=== PATIENT | male | born 1965 | race Caucasian/White ===

== ENCOUNTER 2017-05-29 10:09 | Day surgery (SDC) | payer OTHER ==
[2017-05-29] MEDS: NS 1,000 ML IV (10:15)
[2017-05-29] MEDS ORDERED: LIDOCAINE 2% MDV 20 ML VIAL As Ordered (11:13)
[2017-05-29] MEDS ORDERED: PROPOFOL 200 MG/20 ML VIAL As Ordered ×2 (11:13→11:32)
== END 2017-05-29 12:08 | disposition home or self-care (01) ==
LOC: M OPP 10:09
DX: K62.5 Hemorrhage of anus and rectum (principal); D12.5 Benign neoplasm of sigmoid colon; D12.3 Benign neoplasm of transverse colon; D12.2 Benign neoplasm of ascending colon; K64.2 Third degree hemorrhoids; K64.1 Second degree hemorrhoids; R10.12 Left upper quadrant pain; R13.10 Dysphagia, unspecified; K21.0 Gastro-esophageal reflux disease with esophagitis; K31.89 Other diseases of stomach and duodenum; K29.80 Duodenitis without bleeding; R07.89 Other chest pain; E78.5 Hyperlipidemia, unspecified; E66.9 Obesity, unspecified; M54.2 Cervicalgia; M54.89 Other dorsalgia; R06.83 Snoring; Z88.0 Allergy status to penicillin; Z79.899 Other long term (current) drug therapy; Z79.82 Long term (current) use of aspirin
CPT/HCPCS: 45385

== ENCOUNTER 2018-02-22 14:33 | Emergency (ER) | payer OTHER ==
[2018-02-22] MEDS: NORCO, ANEXSIA 5/325MG TABLET (HYDROcodone/ACETAMINOPHEN) PO (16:55)
== END 2018-02-22 17:44 | disposition home or self-care (01) ==
LOC: M ED 14:33
DX: R91.1 Solitary pulmonary nodule (principal); S40.011A Contusion of right shoulder, initial encounter; V86.96XA Unspecified occupant of dirt bike or motor/cross bike injured in nontraffic accident, initial encounter; Y92.89 Other specified places as the place of occurrence of the external cause; Z88.0 Allergy status to penicillin; Z87.891 Personal history of nicotine dependence
CPT/HCPCS: 71046

== ENCOUNTER → 2018-03-04 | Outpatient (CLI) | payer OTHER ==
[~2018-03-04] MED LIST: CONRAY-43 43% 50ML VIAL (Q9960) As Ordered; PROHANCE 279.3MG/ML 5ML VIAL (A9576) As Ordered
== END ==
LOC: M RADPRO 06:08
DX: M75.32 Calcific tendinitis of left shoulder (principal); M75.122 Complete rotator cuff tear or rupture of left shoulder, not specified as traumatic; M19.012 Primary osteoarthritis, left shoulder; M75.51 Bursitis of right shoulder; M25.512 Pain in left shoulder
CPT/HCPCS: 23350

== ENCOUNTER 2018-04-29 17:13 | Emergency (ER) | payer OTHER ==
[~2018-04-29] VITALS: Ht 182.9 cm; Wt 104.5 kg
[~2018-04-29 17:13] MED LIST changes: +ATOR1TAB21; -CONRAY-43 43% 50ML VIAL (Q9960) As Ordered; +MOBI15TA PO; +NORCOTAB PO; -PROHANCE 279.3MG/ML 5ML VIAL (A9576) As Ordered
--- NOTE | 2018-04-29 17:56 | REP ---
Clinical: Acute headache . Comparison: None . Findings: The ventricles, sulci, and cisterns are normal in position and appearance. Esteves-white differentiation is maintained. No acute intracranial hemorrhage, mass/mass effect, pathology or trauma/injury. No evidence for acute infarction. No extra-axial fluid collection. Calvarium is intact. Paranasal sinuses and mastoid air cells are clear. Impression: Normal noncontrast head CT. No evidence for acute intracranial pathology or trauma/injury. Electronically Signed by Leroy Rooney MD 04/29/2018 05:47 P
[2018-04-29] MEDS ORDERED: NS 1,000 ML IV ONE (18:00)
[2018-04-29] MEDS ORDERED: METOCLOPRAMIDE INJ 10MG/2ML VIAL (J2765) IV ONE (18:00)
[2018-04-29] MEDS ORDERED: diphenhydrAMINE INJ 50MG/ML VIAL (J1200) IV STA (18:21)
[2018-04-29] MEDS ORDERED: METHOCARBAMOL 1,000 MG/10 ML VIAL (J2800) IV ONE (18:30)
[2018-04-29] MEDS ORDERED: KETOROLAC 30 MG/ML VIAL (J1885) IV ONE (18:30)
[2018-04-29] MEDS ORDERED: ROBA500T PO (19:48)
[2018-04-29 20:01] VITALS: BP 135/96
== END 2018-04-29 20:03 | disposition home or self-care (01) ==
LOC: M ED 17:13
DX: R51 Headache (principal); Z88.0 Allergy status to penicillin; Z87.891 Personal history of nicotine dependence
CPT/HCPCS: 70450; 96361; 96374; 96375; 99284; J1200; J1885; J2765; J2800

== ENCOUNTER 2018-10-29 09:31 | Day surgery (SDC) | payer OTHER ==
[~2018-10-29] VITALS: Ht 188 cm; Wt 110.2 kg
[~2018-10-29 09:31] MED LIST changes: +AMIT10TA PO; +HYDR-3715 PO; -NORCOTAB PO; +PRIL20TA2 PO; +PROPOFOL 200 MG/20 ML VIAL As Ordered ONE; +ROBA500T PO
[2018-10-29] MEDS: NS 1,000 ML IV ONE (10:15)
--- NOTE | 2018-10-29 11:51 | ROOR ---
Patient Name: Cooper Lott Procedure Date: 10/29/2018 11:28 AM Date of : 1965 Age: 53 Room: [facility] Gender: Male Note Status: Finalized Procedure: Colonoscopy Indications: High risk colon cancer surveillance: Personal history of colonic polyps Providers: Arsen Prado Jr, MD Referring MD: LINDEN JOHNSON MD Requesting Provider: Medicines: Propofol per Anesthesia Complications: No immediate complications. Procedure: Pre-Anesthesia Assessment: - Prior to the procedure, a History and Physical was performed, and patient medications and allergies were reviewed. The patient is competent. The risks and benefits of the procedure and the sedation options and risks were discussed with the patient. All questions were answered and informed consent was obtained. Patient identification and proposed procedure were verified by the physician and the nurse in the pre-procedure area and in the procedure room. Mental Status Examination: alert and oriented. Airway Examination: normal oropharyngeal airway and neck mobility. Respiratory Examination: clear to auscultation. CV Examination: normal. ASA Grade Assessment: II - A patient with mild systemic disease. After reviewing the risks and benefits, the patient was deemed in satisfactory condition to undergo the procedure. The anesthesia plan was to use moderate sedation / analgesia (conscious sedation). Immediately prior to administration of medications, the patient was re-assessed for adequacy to receive sedatives. The heart rate, respiratory rate, oxygen saturations, blood pressure, adequacy of pulmonary ventilation, and response to care were monitored throughout the procedure. The physical status of the patient was re-assessed after the procedure. The Colonoscope was introduced through the anus and advanced to the cecum, identified by appendiceal orifice and ileocecal valve. The colonoscopy was performed without difficulty. The patient tolerated the procedure well. The quality of the bowel preparation was adequate. Findings: The rectum, sigmoid colon, descending colon, transverse colon, ascending colon, cecum and appendiceal orifice appeared normal. Impression: - The rectum, sigmoid colon, descending colon, transverse colon, ascending colon, cecum and appendiceal orifice are normal. - No specimens collected. Recommendation: - Discharge patient to home (ambulatory). - Repeat colonoscopy in 3 years for surveillance. Arsen Prado MD Arsen Prado Jr, MD 10/29/2018 11:50:56 AM Electronically signed by Arsen Prado Jr, MD Number of Addenda: 0 Note Initiated On: 10/29/2018 11:28 AM Estimated Blood Loss: Estimated blood loss: none.
[2018-10-29 12:15] VITALS: BP 132/76
== END 2018-10-29 12:19 | disposition home or self-care (01) ==
LOC: M OPP 09:31
PROVIDERS: ATTEND Surgery
DX: Z86.010 Personal history of colon polyps (principal)

== ENCOUNTER → 2019-10-08 | Outpatient (CLI) | payer OTHER ==
[~2019-10-08] MED LIST changes: -PROPOFOL 200 MG/20 ML VIAL As Ordered ONE
== END ==
LOC: M LABSMTC 10:05
PROVIDERS: ATTEND Physician Assistant
DX: Z03.818 Encounter for observation for suspected exposure to other biological agents ruled out (principal); Z11.59 Encounter for screening for other viral diseases